=== PATIENT | male | born 1965 | race Caucasian/White ===

== ENCOUNTER 2016-09-25 18:22 | Emergency (ER) | payer MEDICARE, OTHER ==
[2016-09-25] VITALS (7 sets, daily range): BP systolic 136–209; BP diastolic 78–122; PULSE 69–85; RESP 18–20; TEMP 98.3–98.9; O2SAT 94–96
[~2016-09-25] VITALS: Ht 182.9 cm; Wt 147.0 kg
[~2016-09-25 18:22] MED LIST: CLON1TAB PO; IBUP800T23 PO; PAXI10TA2 PO; ROLLER WALKER1 MI1
[2016-09-25] MEDS ORDERED: ONDANSETRON HCL 4 MG/2 ML VIAL IV ONE (19:15)
[2016-09-25 19:36] LABS: AUTOMATED NEUTROPHIL # 7.1 TH/MM3 (1.8-7.7); BASOPHIL # 0.1 TH/MM3 (0-0.2); BASOPHIL % 0.9 % (0.0-2.0); EOSINOPHIL % 0.2 % (0.0-4.0); HEMATOCRIT 50.9 % (39.0-51.0); HEMO FLAGS DIFF FINAL; LYMPH % 20.4 % (9.0-44.0); MEAN CELL VOLUME 93.5 FL (80.0-100.0); MEAN CORPUSCULAR HEMOGLOBIN 31.7 PG (27.0-34.0); MEAN CORPUSCULAR HGB CONC 33.9 % (32.0-36.0); MONO % 6.2 % (0.0-8.0); NEUT % 72.3 % (16.0-70.0); PLATELET COUNT 150 TH/MM3 (150-450); RED BLOOD COUNT 5.45 MIL/MM3 (4.50-5.90); RED CELL DISTRIBUTION WIDTH 12.4 % (11.6-17.2); WHITE BLOOD COUNT 9.8 TH/MM3 (4.0-11.0)
--- NOTE | 2016-09-25 19:37 | PD ---
HPI . Headache, eye pain and dizziness Chief Complaint: General Weakness Time Seen by Provider: 18:53 Travel History International Travel<30 days: No Contact w/Intl Traveler<30days: No Traveled to known affect area: No History of Present Illness HPI This patient presents with multiple complaints. States he became ill yesterday. He states that his eyes hurt, his head hurts and feels dizzy. He has nausea and vomiting, abdominal pain and poor appetite. Mild cough. He reports pruritus of the anterior neck and arms and states that he has been scratching and that now he has red spots. His medical history is significant for hepatitis C and thrombocytopenia. PFSH Past Medical History Blood Disorders: No Bipolar Disorder: Yes Anxiety: Yes Depression: Yes Heart Rhythm Problems: No Cancer: No Cardiovascular Problems: No High Cholesterol: No Chemotherapy: No Chest Pain: No Congestive Heart Failure: No Diabetes: No Diminished Hearing: No Endocrine: No Gastrointestinal Disorders: No Genitourinary: No Headaches: Yes Hepatitis: Yes (HEP C) Hypertension: No Immune Disorder: No Musculoskeletal: No Neurologic: No Psychiatric: No Reproductive: No Respiratory: No Myocardial Infarction: No Schizophrenia: Yes Thyroid Disease: No PNEUMOCCOCAL Vaccine (Year): 1 Past Surgical History Abdominal Surgery: No AICD: No Arteriovenous Shunt: No Cardiac Surgery: No Ear Surgery: No Endocrine Surgery: No Eye Surgery: No Genitourinary Surgery: No Gynecologic Surgery: No Insulin Pump: No Joint Replacement: No Neurologic Surgery: No Oral Surgery: No Pacemaker: No Thoracic Surgery: No Other Surgery: No (KNEE SURGERY) Social History Alcohol Use: No Tobacco Use: No Substance Use: No Allergies-Medications (Allergen,Severity, Reaction): Coded Allergies: No Known Allergies (Verified , 07/26/16) Reported Meds & Prescriptions Reported Meds & Active Scripts Active Reported Clonazepam 1 Mg Tab 1 Mg PO TID Review of Systems Except as stated in HPI: all other systems reviewed are Neg General / Constitutional: Positive: Other (diaphoresis) Eyes: Positive: Pain HENT: Positive: Headaches Respiratory: Positive: Shortness of Breath Gastrointestinal: Positive: Nausea, Vomiting, Abdominal Pain, Loss of Appetite , No: Diarrhea Genitourinary: Positive: Decreased Urinary Output Skin: Positive Rash, Positive Itching, Positive Change in Pigmentation Neurologic: Positive: Dizziness Physical Exam Narrative GENERAL: Obese man who has good color but who is clammy. SKIN: Warm and clammy. He has patches and streaks of small purpuric lesions on his anterior neck and arms. HEAD: Atraumatic. Normocephalic. EYES: Pupils equal and round. ENT: No nasal bleeding or discharge. Mucous membranes pink and moist. NECK: Trachea midline. Neck supple. No lymphadenopathy. CARDIOVASCULAR: Regular rate and rhythm. Heart sounds normal. RESPIRATORY: No accessory muscle use. Lungs are clear with full air movement throughout. GASTROINTESTINAL: Abdomen soft,. Diffusely tender. No guarding or rebound. Nondistended. MUSCULOSKELETAL: No obvious deformities. No edema. NEUROLOGICAL: Awake and alert. No obvious cranial nerve deficits. Motor grossly within normal limits. Normal speech. PSYCHIATRIC: Appropriate mood and affect; insight and judgment normal. Data Data Last Documented VS Vital Signs Date Time Temp Pulse Resp B/P Pulse Ox O2 Delivery O2 Flow Rate FiO2 09/25/16 22:10 98.3 69 18 161/81 94 Room Air Orders Complete Blood Count With Diff (09/25/16 19:10) Comprehensive Metabolic Panel (09/25/16 19:10) Lactic Acid Sepsis Protocol (09/25/16 19:10) Lipase (09/25/16 19:10) Troponin I (09/25/16 19:10) Urinalysis - C+S If Indicated (09/25/16 19:10) Blood Culture (09/25/16 19:10) Chest, Single Ap (09/25/16 19:10) Ecg Monitoring (09/25/16 19:10) Iv Access Insert/Monitor (09/25/16 19:10) Oximetry (09/25/16 19:10) Ondansetron Inj (Zofran Inj) (09/25/16 19:15) Electrocardiogram (09/25/16 18:51) Lorazepam Inj (Ativan Inj) (09/25/16 22:30) Sodium Chlor 0.9% 1000 Ml Inj (Ns 1000 M (09/25/16 22:30) Labs Laboratory Tests Test 09/25/16 09/25/16 09/25/16 09/25/16 19:20 19:32 20:08 21:20 White Blood Count 9.8 TH/MM3 Red Blood Count 5.45 MIL/MM3 Hemoglobin 17.3 GM/DL Hematocrit 50.9 % Mean Corpuscular Volume 93.5 FL Mean Corpuscular Hemoglobin 31.7 PG Mean Corpuscular Hemoglobin 33.9 % Concent Red Cell Distribution Width 12.4 % Platelet Count 150 TH/MM3 Mean Platelet Volume 9.7 FL Neutrophils (%) (Auto) 72.3 % Lymphocytes (%) (Auto) 20.4 % Monocytes (%) (Auto) 6.2 % Eosinophils (%) (Auto) 0.2 % Basophils (%) (Auto) 0.9 % Neutrophils # (Auto) 7.1 TH/MM3 Lymphocytes # (Auto) 2.0 TH/MM3 Monocytes # (Auto) 0.6 TH/MM3 Eosinophils # (Auto) 0.0 TH/MM3 Basophils # (Auto) 0.1 TH/MM3 CBC Comment DIFF FINAL Differential Comment Lactic Acid Level 2.4 mmol/L Urine Color CLAUDIA Urine Turbidity CLEAR Urine pH 5.5 Urine Specific [place] 1.025 Urine Protein NEG mg/dL Urine Glucose (UA) NEG mg/dL Urine Ketones NEG mg/dL Urine Occult Blood SMALL Urine Nitrite NEG Urine Bilirubin NEG Urine Leukocyte Esterase NEG Urine WBC 0-2 /hpf Urine Squamous Epithelial 0-2 /hpf Cells Urine Mucus MOD /lpf Microscopic Urinalysis Comment CULT NOT INDICATED Sodium Level 136 MEQ/L Potassium Level 4.8 MEQ/L Chloride Level 100 MEQ/L Carbon Dioxide Level 27.4 MEQ/L Anion Gap 9 MEQ/L Blood Urea Nitrogen 12 MG/DL Creatinine 1.00 MG/DL Estimat Glomerular Filtration 78 ML/MIN Rate Random Glucose 114 MG/DL Calcium Level 8.5 MG/DL Total Bilirubin 0.6 MG/DL Aspartate Amino Transf 24 U/L (AST/SGOT) Alanine Aminotransferase 38 U/L (ALT/SGPT) Alkaline Phosphatase 69 U/L Troponin I LESS THAN 0.02 NG/ML Total Protein 8.0 GM/DL Albumin 4.1 GM/DL Lipase 79 U/L Test 09/25/16 22:16 Lactic Acid Level 0.9 mmol/L [facility] Medical Decision Making Medical Screen Exam Complete: Yes Emergency Medical Condition: Yes Interpretation(s) EKG shows a sinus rhythm with an incomplete right bundle justice block Differential Diagnosis Differential diagnosis of weakness includes but is not limited to infection, CVA , electrolyte disturbance, renal failure, hypoglycemia, UTI, ACS Narrative Course This patient presents with multiple complaints. Laboratory and radiographic evaluation is pending. In the meantime, he will be treated with IV fluids, Zofran Compazine and Benadryl. Our chemistry analyzer has been down so labs have been delayed. CBC has a normal white count of 9.5. Platelet count is also normal at 150K. H&H is 17.3 and 50.9. UA is negative. For the most part, his chemistries are pending. I do have his lactic acid back and it is 2.4. The patient continues to complain that he just doesn't feel right. I will give him some Ativan and some fluids and see if that helps. 10:50 PM Chemistries are now back. He has a repeat lactic acid level of 0.9. Liver function studies are normal. Troponin is less than 0.02. Lipase is normal. 11:05 PM The patient reports that he is feeling much better and is interested in going home. I think that this may have all been anxiety related. Diagnosis Primary Impression: Headache Qualified Code: R51 - Acute nonintractable headache, unspecified headache type Additional Impression: Dizziness and giddiness Disposition: DISCHARGE HOME Condition: Stable Loretta Royal MD Sep 25, 2016 19:37
[2016-09-25 20:20] LABS: BLOOD, URINE SMALL (NEG); GLUCOSE,URINE NEG (NEG); KETONE, URINE NEG (NEG); NITRITE,URINE NEG (NEG); PH, URINE 5.5 (5.0-8.5)
--- NOTE | 2016-09-25 20:25 | RADHPO ---
EXAM DATE/TIME: 09/25/2016 19:53 [facility] COMPARISON: No previous studies available for comparison. INDICATIONS : Cough, lower chest pain MEDICAL HISTORY : Diabetes mellitus type II. SURGICAL HISTORY : None. ENCOUNTER: Initial ACUITY: 1 day PAIN SCORE: 6/10 LOCATION: Bilateral chest FINDINGS: A single view of the chest demonstrates the lungs to be symmetrically aerated without evidence of mas s, infiltrate or effusion. The cardiomediastinal contours are unremarkable. Osseous structures are intact. CONCLUSION: No evidence of acute cardiopulmonary disease. Simon Chapin MD on September 25, 2016 at 20:23 Board Certified Radiologist. This report was verified electronically.
[2016-09-25 20:29] LABS: URINE COLOR AMBER (YELLW/STRAW)
[2016-09-25 20:32] LABS: COMMENT (UR) CULT NOT INDICATED; CULTURE IF INDICATED CULT NOT INDICATED; MUCUS URINE MOD /lpf (OCC); SQUAMOUS EPITHELIAL CELL URINE 0-2 /hpf (0-5); WBC, URINE 0-2 /hpf (0-5)
[2016-09-25 21:41] LABS: LACTIC ACID GHOST NOT REPORTABLE
[2016-09-25 21:42] LABS: BLOOD UREA NITROGEN 12 MG/DL (7-18); GLOMERULAR FILTRATION RATE 78 ML/MIN (>89); POTASSIUM 4.8 MEQ/L (3.5-5.1); SODIUM (NA) 136 MEQ/L (136-145)
[2016-09-25 21:43] LABS: CHLORIDE 100 MEQ/L (98-107)
[2016-09-25] MEDS ORDERED: SODIUM CHLOR 0.9% 1000 ML INJ 1,000 ML IV ONE (22:30)
[2016-09-25] MEDS ORDERED: LORazepam 2 MG/ML VIAL IV PUSH ONE (22:30)
[2016-09-25 22:37] LABS: ALKALINE PHOSPHATASE 69 U/L (45-117); ALT (GPT) 38 U/L (12-78); ANION GAP 9 MEQ/L (5-15); AST (GOT) 24 U/L (15-37); BICARBONATE 27.4 MEQ/L (21.0-32.0); TOTAL BILIRUBIN ADULT 0.6 MG/DL (0.2-1.0)
--- NOTE | 2016-09-26 23:53 | EKG ---
Date Performed: 09/25/2016 Time Performed: 18:51:54 PTAGE: 51 years EKG: Sinus arrhythmia Severe right axis deviation Incomplete RBBB Right ventricular hypertrophy Abnormal ECG PREVIOUS TRACING : 01/22/2007 07.35 DOCTOR: Christin Daniels Interpretating Date/Time 09/26/2016 23:47:12
== END 2016-09-25 23:59 | disposition home or self-care (01) ==
LOC: PHED 18:22
DX: R51 Headache (principal); R42 Dizziness and giddiness; R05 Cough; R11.2 Nausea with vomiting, unspecified; R10.9 Unspecified abdominal pain; I49.8 Other specified cardiac arrhythmias
CPT/HCPCS: 71010; 80053; 81001; 83605; 83690; 84484; 85025; 87040; 93005; 96361; 96374; 96375; 99284; J2060; J2405; J7030

== ENCOUNTER 2017-09-19 10:45 | Emergency (ER) | payer MEDICARE, OTHER ==
[~2017-09-19] VITALS: Ht 185.4 cm; Wt 131.0 kg
[~2017-09-19 10:45] MED LIST changes: -IBUP800T23 PO; -PAXI10TA2 PO; -ROLLER WALKER1 MI1
[2017-09-19 10:54] VITALS: BP 150/93; PULSE 76; RESP 16; TEMP 98.1; O2SAT 97
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
[2017-09-19] MEDS ORDERED: IBUPROFEN 800 MG TAB PO ONE (13:15)
[2017-09-19] MEDS ORDERED: TETANUS/DIPHTHERIA TOXOID ADULT 0.5 ML VIAL IM ONE (13:15)
[2017-09-19] MEDS ORDERED: ceFAZolin INJ 1,000 MG VIAL IM ONE (13:15)
[2017-09-19] MEDS ORDERED: CEPH-460 PO (13:23)
[2017-09-19] MEDS ORDERED: TRAM50 PO (13:24)
[2017-09-19 13:59] VITALS: BP 148/90
[2017-09-27] MEDS ORDERED: HYDR-3288 PO (08:19)
[2017-09-27] MEDS ORDERED: IBUP1TAB7 PO (08:19)
[2017-09-27] MEDS ORDERED: CEPH-460 PO (08:19)
== END 2017-09-19 14:04 | disposition home or self-care (01) ==
LOC: PHEFT 10:45
DX: S62.617A Displaced fracture of proximal phalanx of left little finger, initial encounter for closed fracture (principal); S61.215A Laceration without foreign body of left ring finger without damage to nail, initial encounter; F31.9 Bipolar disorder, unspecified; F41.9 Anxiety disorder, unspecified; F20.9 Schizophrenia, unspecified; V18.4XXA Pedal cycle driver injured in noncollision transport accident in traffic accident, initial encounter; Z86.19 Personal history of other infectious and parasitic diseases; Z23 Encounter for immunization; Z79.899 Other long term (current) drug therapy
CPT/HCPCS: 29125; 73130; 90471; 90714; 96372; 99284; J0690

== ENCOUNTER → 2017-09-27 | Day surgery (SDC) | payer MEDICARE, OTHER ==
[~2017-09-27] VITALS: Ht 182.9 cm; Wt 131.0 kg
[~2017-09-27] MED LIST changes: +BUPIVACAINE HCL PF 0.5% 30 ML VIAL ONE; +CEPH-460 PO; +CHLORHEXIDINE GLUCONATE 2 % 1 PACK (2 CLOTHS) TOPICAL PRN; +HYDR-3288 PO; +IBUP1TAB7 PO; +LACTATED RINGER'S 1000 ML IV PRN; +LIDOCAINE HCL 2% 50 ML VIAL ONE; +METOPROLOL TARTRATE 25 MG TAB PO PRN; +MIDAZOLAM HCL 2 MG/2 ML VIAL ONE; +MORPHINE SULFATE 4 MG/ML INJ ONE; +NEOMYCIN/POLYMYXIN 1 ML G.U. IRRIGANT ONE; +POVIDONE IODINE 5% (ANTISEPSIS KIT) 4 APPLICATIONS EACH NARE PRN; +SODIUM CHLORID 0.9% 500 ML IV PRN; +SODIUM CHLORIDE FLUSH BID IV FLUSH SCH; +SODIUM CHLORIDE FLUSH PRN IV FLUSH; +TRAM50 PO; +ceFAZolin 2 GM PREMIX 50 ML IV SCH
[2017-09-27 06:45] LABS: HEMOGLOBIN 15.4 GM/DL (13.0-17.0); MEAN CELL VOLUME 93.5 FL (80.0-100.0); MEAN CORPUSCULAR HEMOGLOBIN 32.1 PG (27.0-34.0); MEAN CORPUSCULAR HGB CONC 34.3 % (32.0-36.0); MEAN PLATELET VOLUME 9.1 FL (7.0-11.0); PLATELET COUNT 193 TH/MM3 (150-450); RED BLOOD COUNT 4.81 MIL/MM3 (4.50-5.90); RED CELL DISTRIBUTION WIDTH 12.3 % (11.6-17.2)
[2017-09-27 08:55] VITALS: PULSE 67
--- NOTE | 2017-09-27 09:23 | MP ---
cc: RICH ARGUETA III, M.D. DATE OF SURGERY: 09/27/2017 PREOPERATIVE DIAGNOSIS Left fifth proximal phalanx fracture. PROCEDURE 1. Left fifth proximal phalanx closed reduction and pinning with manipulation. 2. Use of image intensifier. SURGEON Rich Argueta III, MD PROCEDURE The patient was brought to the operating room and placed supine on the operating table. After the correct site and side of surgery were verified by members of each team in the room multiple times including the patient, myself and after adequate preoperative markings and preoperative written consent and general anesthesia had been achieved, the left upper extremity was prepped and draped in traditional sterile surgical fashion. Mini C-arm was used throughout the case verifying the site of the intended procedure and the fracture of the fifth proximal phalanx. A 50/50 mixture of 2% lidocaine and 0.5% plain Marcaine was infiltrated in the dorsal aspect of the hand and the MP joint to provide for postoperative pain control. Closed reduction was performed manually under fluoroscopic guidance and two separate K-wires were placed in antegrade fashion. The first is 0.035 cm K-wire and then a 0.045 cm K-wire and they are tailored to length, cut, bent and Odilon balls were applied. There is no evidence of any mal-angulation or malrotation. Tenodesis prior to the procedure revealed the flexor and extensor tendons were all intact. The hand and arm were thoroughly cleansed and dried. Additional local anesthetic was injected around the pin sites for postoperative pain control. Xeroform was applied around the pin sites and a well-padded, well-molded short-arm immobilizing splint was made in the usual fashion. The patient was awakened from anesthesia and transported to the Post Anesthesia Care Unit awake and in stable condition at the end of the case. Sponge, needle, instrument counts were correct at the end of the case as reported by nurses in the room. Capillary refill is less than 2 seconds in all fingertips. MD DONNIE Artis III/JAY /8:49 AM 8:55 AM
[2017-09-27 09:50] VITALS: BP 117/70; PULSE 62; RESP 16; TEMP 97.6; O2SAT 97
--- NOTE | 2017-09-28 19:17 | EKG ---
Date Performed: 09/27/2017 Time Performed: 07:07:05 PTAGE: 52 years EKG: Sinus rhythm WITH SINUS ARRHYTHMIA INDETERMINATE AXIS S1-S2-S3 PATTERN, CONSISTENT WITH PULMONARY DISEASE, RVH, O R NORMAL VARIANT INCOMPLETE RIGHT BUNDLE BRANCH BLOCK ABNORMAL ECG PREVIOUS TRACING : 09/25/2016 18.51 DOCTOR: Christin Daniels Interpretating Date/Time 09/28/2017 19:16:03
== END | disposition home or self-care (01) ==
LOC: PHSDC 06:03
PROVIDERS: ATTEND Orthopaedic Surgery Hand Surgery
DX: S62.617A Displaced fracture of proximal phalanx of left little finger, initial encounter for closed fracture (principal); R94.31 Abnormal electrocardiogram [ECG] [EKG]
CPT/HCPCS: 01820; 26727; 36415; 76000; 85027; 93005; J0690; J2250; J2270; J7120

== ENCOUNTER 2017-12-19 10:10 | Inpatient (IN) | payer MEDICARE, OTHER ==
[~2017-12-19] VITALS: Ht 182.9 cm; Wt 124.0 kg
[~2017-12-19 10:10] MED LIST changes: -BUPIVACAINE HCL PF 0.5% 30 ML VIAL ONE; -CEPH-460 PO; -CHLORHEXIDINE GLUCONATE 2 % 1 PACK (2 CLOTHS) TOPICAL PRN; +CIPR-9 PO; -HYDR-3288 PO; -IBUP1TAB7 PO; -LACTATED RINGER'S 1000 ML IV PRN; -LIDOCAINE HCL 2% 50 ML VIAL ONE; -METOPROLOL TARTRATE 25 MG TAB PO PRN; -MIDAZOLAM HCL 2 MG/2 ML VIAL ONE; -MORPHINE SULFATE 4 MG/ML INJ ONE; -NEOMYCIN/POLYMYXIN 1 ML G.U. IRRIGANT ONE; -POVIDONE IODINE 5% (ANTISEPSIS KIT) 4 APPLICATIONS EACH NARE PRN; -SODIUM CHLORID 0.9% 500 ML IV PRN; -SODIUM CHLORIDE FLUSH BID IV FLUSH SCH; -SODIUM CHLORIDE FLUSH PRN IV FLUSH; -ceFAZolin 2 GM PREMIX 50 ML IV SCH
[2017-12-19 10:20] VITALS: BP 175/108; PULSE 77; RESP 16; TEMP 98; O2SAT 96
--- NOTE | 2017-12-19 10:51 | PD ---
HPI Chief Complaint: Psychiatric Symptoms Time Seen by Provider: 10:32 Travel History International Travel<30 days: No Contact w/Intl Traveler<30days: No Traveled to known affect area: No History of Present Illness HPI 52-year-old male presents to the emergency department voluntarily for psychiatric evaluation. He has history of depression and says that he has been feeling suicidal. He has been off his medications for the past 3 weeks. He says he "just wants to give up." His plan is to kill himself by stopped taking his medications. He has history of suicidal attempt by jumping off a ting. Denies homicidal ideations. Says he has been isolating himself a lot lately. Says he feels very anxious. Patient is tremorous in bilateral lower extremities and says this is increased more than normal. Reports auditory hallucinations and voices tell him to hurt himself. Denies visual hallucinations. Admits to using illicit drugs and admits to crack cocaine and heroin. Injected heroin on Sunday. Denies chest pain, shortness of breath, abdominal pain. Reports feeling nauseated without vomiting. Says he has been having left flank pain on and off "for a while." He cannot verify how long and says that he has followed up with his PCP in regards to this complaint and was supposed to do some outpatient testing and has not followed up. Denies abdominal or flank pain at this time. Reports not having a bowel movement for almost a week. Denies dysuria. Says his feelings are aggravated by his depression. No known relieving factors. Symptoms are moderate to severe in severity. History of depression and bipolar disorder. His psychiatrist is Dr. Peters. Primary care providers Dr. Gibbons. No known allergies. History of hypertension and hepatitis C. Has not been taking his hypertension medications. Has no other medical complaints. No other modifying factors or associated signs and symptoms. PFSH Past Medical History Blood Disorders: No Bipolar Disorder: Yes Anxiety: Yes Depression: Yes Heart Rhythm Problems: No Cancer: No Cardiovascular Problems: No High Cholesterol: No Chemotherapy: No Chest Pain: No Congestive Heart Failure: No Diabetes: No Diminished Hearing: No Endocrine: No Gastrointestinal Disorders: No Genitourinary: No Headaches: Yes Hepatitis: Yes (HEP C) Hiatal Hernia: No Hypertension: No Immune Disorder: No Musculoskeletal: No Neurologic: No Psychiatric: No Reproductive: No Respiratory: No Myocardial Infarction: No Schizophrenia: Yes Thyroid Disease: No Tetanus Vaccination: < 5 Years PNEUMOCCOCAL Vaccine (Year): 1 Past Surgical History Abdominal Surgery: No AICD: No Arteriovenous Shunt: No Cardiac Surgery: No Ear Surgery: No Endocrine Surgery: No Eye Surgery: No Genitourinary Surgery: No Gynecologic Surgery: No Insulin Pump: No Joint Replacement: No Neurologic Surgery: No Oral Surgery: No Pacemaker: No Thoracic Surgery: No Social History Alcohol Use: No Tobacco Use: No Substance Use: Yes (crack, heroin) Allergies-Medications (Allergen,Severity, Reaction): Coded Allergies: No Known Allergies (Verified Adverse Reaction, Unknown, 12/19/17) Reported Meds & Prescriptions Reported Meds & Active Scripts Active Cipro (Ciprofloxacin HCl) 500 Mg Tab 500 Mg PO BID Ultram (Tramadol HCl) 50 Mg Tab 50 Mg PO Q6H PRN Reported Clonazepam 1 Mg Tab 1 Mg PO DIRECTED Review of Systems Except as stated in HPI: all other systems reviewed are Neg Physical Exam Narrative GENERAL: Well-nourished, well-developed male patient, in no acute distress SKIN: Warm and dry. HEAD: Atraumatic. Normocephalic. EYES: Pupils equal and round. ENT: Mucosa pink and moist. NECK: Supple. Trachea midline. CARDIOVASCULAR: Regular rate and rhythm. No murmur appreciated. RESPIRATORY: No accessory muscle use. Clear to auscultation. Breath sounds equal bilaterally. GASTROINTESTINAL: Abdomen soft, non-tender, nondistended. Hepatic and splenic margins not palpable. Bowel sounds are active 4 quadrants. MUSCULOSKELETAL: No obvious deformities. No clubbing. No cyanosis. No edema. BACK: No CVA tenderness. NEUROLOGICAL: Awake and alert. Oriented 3. No obvious cranial nerve deficits. Motor grossly within normal limits. Normal speech. Moves all extremities. 5/5 strength to all extremities. PSYCHIATRIC: No delusional thought processes. No hallucinations. Data Data Last Documented VS Vital Signs Date Time Temp Pulse Resp B/P (MAP) Pulse Ox O2 Delivery O2 Flow Rate FiO2 12/19/17 10:20 98.0 77 16 175/108 (130) 96 Orders Orders Complete Blood Count With Diff (12/19/17 10:34) Comprehensive Metabolic Panel (12/19/17 10:34) Thyroid Stimulating Hormone (12/19/17 10:34) Psych Screen (12/19/17 10:34) Drug Screen, Random Urine (12/19/17 10:34) Alcohol (Ethanol) (12/19/17 10:34) Salicylates (Aspirin) (12/19/17 10:34) Tylenol (Acetaminophen) (12/19/17 10:34) Lipase (12/19/17 10:51) Lorazepam (Ativan) (12/19/17 11:30) Docusate Sodium (Colace) (12/19/17 11:30) Labs Laboratory Tests Test 12/19/17 10:45 12/19/17 10:50 White Blood Count 6.8 TH/MM3 Red Blood Count 5.15 MIL/MM3 Hemoglobin 16.6 GM/DL Hematocrit 47.3 % Mean Corpuscular Volume 91.9 FL Mean Corpuscular Hemoglobin 32.2 PG Mean Corpuscular Hemoglobin Concent 35.0 % Red Cell Distribution Width 12.4 % Platelet Count 167 TH/MM3 Mean Platelet Volume 9.3 FL Neutrophils (%) (Auto) 68.4 % Lymphocytes (%) (Auto) 22.2 % Monocytes (%) (Auto) 8.7 % Eosinophils (%) (Auto) 0.4 % Basophils (%) (Auto) 0.3 % Neutrophils # (Auto) 4.6 TH/MM3 Lymphocytes # (Auto) 1.5 TH/MM3 Monocytes # (Auto) 0.6 TH/MM3 Eosinophils # (Auto) 0.0 TH/MM3 Basophils # (Auto) 0.0 TH/MM3 CBC Comment DIFF FINAL Differential Comment Blood Urea Nitrogen 7 MG/DL Creatinine 1.16 MG/DL Random Glucose 82 MG/DL Total Protein 8.0 GM/DL Albumin 4.0 GM/DL Calcium Level 8.8 MG/DL Alkaline Phosphatase 71 U/L Aspartate Amino Transf (AST/SGOT) 20 U/L Alanine Aminotransferase (ALT/SGPT) 18 U/L Total Bilirubin 0.4 MG/DL Sodium Level 139 MEQ/L Potassium Level 3.5 MEQ/L Chloride Level 108 MEQ/L Carbon Dioxide Level 21.4 MEQ/L Anion Gap 10 MEQ/L Estimat Glomerular Filtration Rate 66 ML/MIN Lipase 128 U/L Thyroid Stimulating Hormone 3rd Gen 0.981 uIU/ML Salicylates Level LESS THAN 1.7 MG/DL Ethyl Alcohol Level LESS THAN 3 MG/DL Urine Opiates Screen NEG Urine Barbiturates Screen NEG Urine Amphetamines Screen NEG Urine Benzodiazepines Screen POS Urine Cocaine Screen POS Urine Cannabinoids Screen NEG MDM Medical Decision Making Medical Screen Exam Complete: Yes Emergency Medical Condition: Yes Medical Record Reviewed: Yes Differential Diagnosis Polysubstance abuse, depression, suicidal ideation, medical clearance for psychiatric admission Narrative Course Patient presents voluntarily. Physical examination and vital signs are essentially unremarkable. Patient has no medical complaints to report. Psych screen has been ordered. If the laboratory results are unremarkable, the patient will be medically cleared for psychiatric evaluation and disposition. Ativan and Colace ordered. Diagnosis Primary Impression: Medical clearance for psychiatric admission Condition: Stable Kay Estrella Dec 19, 2017 10:51
[2017-12-19 11:09] LABS: AUTOMATED NEUTROPHIL # 4.6 TH/MM3 (1.8-7.7); BASOPHIL % 0.3 % (0.0-2.0); EOSINOPHIL % 0.4 % (0.0-4.0); HEMATOCRIT 47.3 % (39.0-51.0); HEMOGLOBIN 16.6 GM/DL (13.0-17.0); LYMPH % 22.2 % (9.0-44.0); LYMPHOCYTE # 1.5 TH/MM3 (1.0-4.8); MEAN CELL VOLUME 91.9 FL (80.0-100.0); MEAN CORPUSCULAR HEMOGLOBIN 32.2 PG (27.0-34.0); MEAN PLATELET VOLUME 9.3 FL (7.0-11.0); MONO % 8.7 % (0.0-8.0); MONOCYTE # 0.6 TH/MM3 (0-0.9); NEUT % 68.4 % (16.0-70.0); PLATELET COUNT 167 TH/MM3 (150-450); RED BLOOD COUNT 5.15 MIL/MM3 (4.50-5.90); RED CELL DISTRIBUTION WIDTH 12.4 % (11.6-17.2); WHITE BLOOD COUNT 6.8 TH/MM3 (4.0-11.0)
[2017-12-19 11:23] LABS: BICARBONATE 21.4 MEQ/L (21.0-32.0); BLOOD UREA NITROGEN 7 MG/DL (7-18); CALCIUM 8.8 MG/DL (8.5-10.1); CHLORIDE 108 MEQ/L (98-107); CREATININE 1.16 MG/DL (0.60-1.30); GLOMERULAR FILTRATION RATE 66 ML/MIN (>89); GLUCOSE,RANDOM 82 MG/DL (74-106); SODIUM (NA) 139 MEQ/L (136-145)
[2017-12-19 11:24] LABS: ALT (GPT) 18 U/L (12-78)
[2017-12-19] MEDS ORDERED: DOCUSATE SODIUM 100 MG CAP PO ONE (11:30)
[2017-12-19] MEDS ORDERED: LORazepam 2 MG TAB PO ONE (11:30)
[2017-12-19 11:34] LABS: ALKALINE PHOSPHATASE 71 U/L (45-117); AST (GOT) 20 U/L (15-37); TOTAL BILIRUBIN ADULT 0.4 MG/DL (0.2-1.0)
[2017-12-19 11:41] LABS: ACETAMINOPHEN LESS THAN 2.0 MCG/ML (10.0-30.0)
[2017-12-19 12:18] VITALS: BP 172/96; PULSE 67; RESP 18; O2SAT 98
[2017-12-19 18:39] VITALS: BP 145/91; PULSE 75; RESP 18; O2SAT 99
[2017-12-19] MEDS ORDERED: ACETAMINOPHEN 325 MG TAB PO PRN (21:30)
[2017-12-19] MEDS ORDERED: LORazepam 2 MG/ML VIAL IM PRN ×2 (21:30)
[2017-12-19] MEDS ORDERED: traMADol HCL 50 MG TAB PO PRN (21:30)
[2017-12-19] MEDS ORDERED: MAGNESIUM HYDROXIDE SUSP 30 ML CUP PO PRN (21:30)
[2017-12-19] MEDS ORDERED: LORazepam 0.5 MG TAB PO PRN (21:30)
[2017-12-19] MEDS ORDERED: ALUMINUM/MAGNESIUM/SIMETH 30 ML CUP PO PRN (21:30)
[2017-12-19] MEDS: LORazepam 1 MG TAB PO PRN (23:11)
[2017-12-19 23:40] VITALS: BP 153/96; PULSE 77; RESP 18; TEMP 98.1; O2SAT 97
[2017-12-20 05:55] VITALS: BP 142/86; PULSE 67; RESP 16; TEMP 98.2; O2SAT 97
[2017-12-20 07:40] LABS: BICARBONATE 22.9 MEQ/L (21.0-32.0); BLOOD UREA NITROGEN 9 MG/DL (7-18); CALCIUM 8.7 MG/DL (8.5-10.1); CHLORIDE 106 MEQ/L (98-107); CREATININE 1.14 MG/DL (0.60-1.30); GLOMERULAR FILTRATION RATE 67 ML/MIN (>89); GLUCOSE,RANDOM 108 MG/DL (74-106); SODIUM (NA) 138 MEQ/L (136-145)
[2017-12-20 07:42] LABS: CHOLESTEROL 158 MG/DL (120-200)
[2017-12-20 07:44] LABS: CHOLESTEROL/ HDL RATIO 4.22 RATIO; HDL CHOLESTEROL 37.4 MG/DL (40.0-60.0); LDL CHOLESTEROL 100 MG/DL (0-99); TRIGLYCERIDES 101 MG/DL (42-150)
[2017-12-20] MEDS: NICOTINE 21 MG/24 HR PATCH T-DERMAL SCH (09:00)
[2017-12-20] MEDS: REMOVE OLD NICODERM (NICOTINE) PATCH T-DERMAL SCH (09:00)
[2017-12-20] MEDS: LORazepam 1 MG TAB PO PRN (09:07)
[2017-12-20] MEDS ORDERED: PARO40TA2 PO (09:45)
[2017-12-20] MEDS ORDERED: ZIPR20 PO (09:45)
[2017-12-20] MEDS ORDERED: SPIR25TA PO (09:45)
[2017-12-20] MEDS ORDERED: ALPR2TAB3 PO (09:45)
[2017-12-20] MEDS ORDERED: LORazepam 2 MG/ML VIAL IV PUSH PRN ×4 (13:00)
[2017-12-20] MEDS ORDERED: FLUMAZENIL 0.5 MG/5 ML VIAL IV PUSH PRN (13:00)
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
[2017-12-20] MEDS ORDERED: PILL SPLITTER OTHER PRN (13:30)
[2017-12-20] MEDS: SERTRALINE HCL 50 MG TAB PO SCH (13:51)
[2017-12-20] MEDS: LITHIUM CARBONATE 300 MG TAB PO SCH (13:51)
[2017-12-20] MEDS: LORazepam 2 MG TAB PO PRN ×2 (13:51→21:11)
[2017-12-20 15:32] LABS: HEMOGLOBIN A1C 5.2 % (4.3-6.0)
[2017-12-20 16:33] VITALS: BP 153/83; PULSE 71; RESP 17; TEMP 98.2; O2SAT 96
[2017-12-20] MEDS: ZIPRASIDONE HCL 20 MG CAP PO SCH (21:10)
[2017-12-21 05:50] VITALS: BP 141/75; PULSE 56; RESP 16; TEMP 97.5; O2SAT 97
[2017-12-21] MEDS: SPIRONOLACTONE 25 MG TAB PO SCH (08:21)
[2017-12-21] MEDS: SERTRALINE HCL 50 MG TAB PO SCH (08:22)
[2017-12-21] MEDS: LITHIUM CARBONATE 300 MG TAB PO SCH (08:22)
[2017-12-21] MEDS: ZIPRASIDONE HCL 20 MG CAP PO SCH ×2 (08:22→20:27)
[2017-12-21] MEDS: REMOVE OLD NICODERM (NICOTINE) PATCH T-DERMAL SCH (09:00)
[2017-12-21] MEDS: NICOTINE 21 MG/24 HR PATCH T-DERMAL SCH (09:00)
--- NOTE | 2017-12-21 09:09 | PD.CONS ---
HPI Service [facility] Hospitalists Consult Requested By Psychiatric team Reason for Consult Medical management Primary Care Physician Ez Gibbons MD Diagnoses: History of Present Illness This is a 52-year-old male patient with a past medical history which includes hypertension, anxiety, polysubstance abuse and bipolar disorder. Patient is currently admitted to inpatient psychiatric center with been consulted for assistance with medical management. Patient offers no medical complaints at this time. Reports he presented to the psychiatric department for suicidal thoughts but continues to deny other medical concerns. Patient denies chest pain fevers chills nausea vomiting shortness of breath cough congestion nausea vomiting diarrhea constipation. Review of Systems Constitutional: DENIES: Fatigue, Fever, Chills, Dizziness Eyes: DENIES: Blurred vision, Diplopia, Photosensitivity Respiratory: DENIES: Sputum production, Shortness of breath Cardiovascular: DENIES: Chest pain, Palpitations, Dyspnea on Exertion, Lower Extremity Edema Gastrointestinal: DENIES: Abdominal pain, Constipation, Diarrhea, Nausea, Vomiting Genitourinary: DENIES: Urinary frequency, Dysuria Neurologic: DENIES: Abnormal gait, Headache, Localized weakness, Speech Problems Psychiatric: COMPLAINS OF: Hallucinations (auditory hallucinations), Suicidal Ideation, DENIES: Confusion Past Family Social History Past Medical History hypertension, anxiety, polysubstance abuse and bipolar disorder Past Surgical History Colonoscopy, EGD, knee surgery Reported Medications Ultram (Tramadol HCl) 50 Mg Tab 50 Mg PO Q6H PRN Geodon (Ziprasidone) 20 Mg Cap 20 Mg PO BID Paroxetine (Paroxetine HCl) 40 Mg Tab 50 Mg PO DAILY Alprazolam 2 Mg Tab 2 Mg PO Q6H PRN Spironolactone 25 Mg Tab 12.5 Mg PO DAILY Clonazepam 1 Mg Tab 1 Mg PO DIRECTED Amlodipine 2.5 mg by mouth daily Allergies: Coded Allergies: No Known Allergies (Verified Adverse Reaction, Unknown, 12/19/17) Family History Reviewed positive for polysubstance abuse/addiction's Social History Patient is on disability he is but currently living separately from his Positive EtOH use Positive tobacco use Positive illicit drug use including marijuana cocaine and heroin Physical Exam Vital Signs Vital Signs Date Time Temp Pulse Resp B/P (MAP) Pulse Ox O2 Delivery O2 Flow Rate FiO2 12/21/17 05:50 97.5 56 16 141/75 (97) 97 12/20/17 16:33 98.2 71 17 153/83 (446) 02 Physical Exam GENERAL: This is a well-nourished, well-developed patient, in no apparent distress. SKIN: No rashes, ecchymoses or lesions. Cool and dry. HEAD: Atraumatic. Normocephalic. No temporal or scalp tenderness. EYES: Extraocular motions intact. No scleral icterus. No injection or drainage. CARDIOVASCULAR: Regular rate and rhythm RESPIRATORY: Clear to auscultation. Breath sounds equal bilaterally. GASTROINTESTINAL: Abdomen soft, non-tender, nondistended. MUSCULOSKELETAL: Extremities without clubbing, cyanosis, or edema. No joint tenderness, effusion, or edema noted. No calf tenderness. Negative Homans sign bilaterally. NEUROLOGICAL: Awake and alert. Motor and sensory grossly within normal limits. Five out of 5 muscle strength in all muscle groups. Result Diagram: 12/19/17 1045 12/20/17 0630 Assessment and Plan Problem List: (1) Bipolar I disorder, most recent episode mixed, moderate ICD Codes: F31.62 - Bipolar disorder, current episode mixed, moderate Status: Chronic Plan: Patient currently inpatient psychiatric center management of bipolar and suicidal ideations per psychiatric team (2) Polysubstance abuse ICD Codes: F19.10 - Other psychoactive substance abuse, uncomplicated Plan: Patient counseled encouraged to abstain CIWA protocol (3) Hypertension ICD Codes: I10 - Essential (primary) hypertension Plan: Resume patient's home Amlodipine 2.5 mg by mouth daily added, may need to titrate up as needed for control of hypertension Clonidine 0.1 mg by mouth as needed for hypertension (4) Hypokalemia ICD Codes: E87.6 - Hypokalemia Plan: Potassium 3.4 replaced Assessment and Plan Patient examined. Assessment and plan formulated with Eri Addison PA-C. I agree with the above. Home blood pressure medication resumed. Pt appears medically stable. Treatment of bipolar disorder and polysubstance abuse per Psychiatry Eri Addison Dec 21, 2017 09:09 Brett Carrasquillo DO Dec 21, 2017 19:40
[2017-12-21] MEDS ORDERED: POTASSIUM CHLORIDE 20 MEQ CONTROLLED RELEASE TAB PO ONE (09:30)
[2017-12-21] MEDS: amLODIPine BESYLATE 5 MG TAB PO SCH (10:31)
[2017-12-21] MEDS: LORazepam 1 MG TAB PO PRN (10:31)
[2017-12-21 10:51] VITALS: BP 122/58; PULSE 64; RESP 17; TEMP 97.4; O2SAT 97
--- NOTE | 2017-12-21 13:30 | HHI.PYPN ---
Subjective Remarks Patient seen in his room with nurse [place] chart review, patient compliant medications, patient discussed with nurse., patient laying quietly in bed, is calm cooperative said he slept better last night. Denies suicidality at this time is vague about voices. He states he has talked with a safe sober house in the [place] area of the bed may be available on Sunday. We'll verify this. Otherwise continue treatment Review of Systems Except as stated in HPI: all other systems reviewed are Neg Mental Status Examination Appearance: Appropriate Consciousness: Alert Orientation: x4 Motor Activity: Normal gait Speech: Unremarkable Language: Adequate Fund of Knowledge: Adequate Attention and Concentration: Other (fair) Memory: Unremarkable Mood: Sad Affect: Other (decreased range and intensity) Thought Process & Associations: Intact Thought Content: Appropriate Hallucination Type: None (vague about voices) Delusion Type: None Suicidal Ideation: Yes (vague, denies at this time) Suicidal Plan: No Suicidal Intention: No Homicidal Ideation: No Homicidal Plan: No Homicidal Intention: No Insight: Fair Judgment: Impulsive Results Vitals/IOs Vital Signs Date Time Temp Pulse Resp B/P (MAP) Pulse Ox O2 Delivery O2 Flow Rate FiO2 12/21/17 10:51 97.4 64 17 122/58 (79) 97 12/19/17 18:39 Room Air Intake and Output 12/21/17 12/21/17 12/22/17 08:00 16:00 00:00 Intake Total 480 ml Balance 480 ml Assessment & Plan Problem List: (1) Polysubstance abuse ICD Codes: F19.10 - Other psychoactive substance abuse, uncomplicated (2) Bipolar I disorder, most recent episode mixed, moderate ICD Codes: F31.62 - Bipolar disorder, current episode mixed, moderate Status: Chronic Assessment & Plan Estimated LOS: days patient continues depressed though suicidality is resolving. The showing some initiative at exploring sober house placements Justification for Cont. Inpt. At this time patient will decompensate if placed a lower level of care Discharge Planning [place] placement and sober house first part of next week Request HC Surrog/Guard Advoc?: No Simon Johansen MD Dec 21, 2017 13:30
[2017-12-21 16:02] VITALS: BP 148/86; PULSE 78; RESP 18; TEMP 98.1; O2SAT 98
[2017-12-21] MEDS: hydrOXYzine HCL 50 MG TAB PO PRN (20:27)
[2017-12-22 05:45] VITALS: BP 134/80; PULSE 52; RESP 16; TEMP 98.1; O2SAT 98
[2017-12-22] MEDS: ZIPRASIDONE HCL 20 MG CAP PO SCH ×2 (08:44→20:39)
[2017-12-22] MEDS: SERTRALINE HCL 50 MG TAB PO SCH (08:45)
[2017-12-22] MEDS: amLODIPine BESYLATE 5 MG TAB PO SCH (08:45)
[2017-12-22] MEDS: LITHIUM CARBONATE 300 MG TAB PO SCH (08:45)
[2017-12-22] MEDS: SPIRONOLACTONE 25 MG TAB PO SCH (08:45)
[2017-12-22] MEDS: NICOTINE 21 MG/24 HR PATCH T-DERMAL SCH (08:53)
[2017-12-22] MEDS: REMOVE OLD NICODERM (NICOTINE) PATCH T-DERMAL SCH (08:54)
[2017-12-22] MEDS: LORazepam 1 MG TAB PO PRN ×3 (12:30→20:39)
--- NOTE | 2017-12-22 12:33 | HHI.PYPN ---
Subjective Remarks Patient was seen and case discussed with nursing. Patient is tremulous during the interview and myself and nursing have reservations if this is genuine or manipulative behavior. Patient says he was taking 8 mg of Xanax daily and using crack cocaine before admission. He is in the CIWA scale. Blood pressures have been stable, there is no confusion, is alert and oriented 4, no nausea or vomiting, no auditory visual hallucinations. Patient is behaving well on the unit. Denies suicidal or homicidal ideation intent or plan. Sleeping and eating well Mental Status Examination Appearance: Appropriate Consciousness: Alert Orientation: x4 Motor Activity: Normal gait Speech: Unremarkable Language: Adequate Fund of Knowledge: Adequate Attention and Concentration: Other (fair) Memory: Unremarkable Mood: Sad Affect: Other (decreased range and intensity) Thought Process & Associations: Intact Thought Content: Appropriate Hallucination Type: None (vague about voices) Delusion Type: None Suicidal Ideation: No Suicidal Plan: No Suicidal Intention: No Homicidal Ideation: No Homicidal Plan: No Homicidal Intention: No Insight: Fair Judgment: Impulsive Results Vitals/IOs Vital Signs Date Time Temp Pulse Resp B/P (MAP) Pulse Ox O2 Delivery O2 Flow Rate FiO2 12/22/17 05:45 98.1 52 16 134/80 (98) 98 12/19/17 18:39 Room Air Intake and Output 12/22/17 12/22/17 12/23/17 08:00 16:00 00:00 Intake Total 240 ml Balance 240 ml Assessment & Plan Problem List: (1) Polysubstance abuse ICD Codes: F19.10 - Other psychoactive substance abuse, uncomplicated (2) Bipolar I disorder, most recent episode mixed, moderate ICD Codes: F31.62 - Bipolar disorder, current episode mixed, moderate Status: Chronic Assessment & Plan Nursing asked to check on patient see if he continues to shake and if so to administer Ativan per CIWA Justification for Cont. Inpt. Patient would decompensate in a less restrictive setting Request HC Surrog/Guard Advoc?: No Julius Jesus DO Dec 22, 2017 12:33
[2017-12-22 17:27] VITALS: BP 146/86; PULSE 87; RESP 16; TEMP 98.3; O2SAT 98
[2017-12-22] MEDS: hydrOXYzine HCL 50 MG TAB PO PRN (20:39)
[2017-12-23 05:36] VITALS: BP 120/90; PULSE 74; RESP 16; TEMP 98.1; O2SAT 98
[2017-12-23] MEDS: SERTRALINE HCL 50 MG TAB PO SCH (08:35)
[2017-12-23] MEDS: LITHIUM CARBONATE 300 MG TAB PO SCH ×2 (08:35→21:09)
[2017-12-23] MEDS: LORazepam 1 MG TAB PO PRN ×2 (08:35→15:00)
[2017-12-23] MEDS: SPIRONOLACTONE 25 MG TAB PO SCH (08:35)
[2017-12-23] MEDS: amLODIPine BESYLATE 5 MG TAB PO SCH (08:35)
[2017-12-23] MEDS: ZIPRASIDONE HCL 20 MG CAP PO SCH ×2 (08:35→21:10)
[2017-12-23] MEDS: REMOVE OLD NICODERM (NICOTINE) PATCH T-DERMAL SCH (08:40)
[2017-12-23] MEDS: NICOTINE 21 MG/24 HR PATCH T-DERMAL SCH (08:40)
--- NOTE | 2017-12-23 11:57 | HHI.PYPN ---
Subjective Remarks Patient was seen and case discussed with nursing. Patient no longer has tremors. CIWA is 1 and he has received 1 mg of Ativan today. Mood is "better. " Denies suicidal or homicidal ideation intent or plan. Speaking with family on the phone. [place] level 0.2. Mental Status Examination Appearance: Appropriate Consciousness: Alert Orientation: x4 Motor Activity: Normal gait Speech: Unremarkable Language: Adequate Fund of Knowledge: Adequate Attention and Concentration: Other (fair) Memory: Unremarkable Mood: Sad Affect: Other (decreased range and intensity) Thought Process & Associations: Intact Thought Content: Appropriate Hallucination Type: None (vague about voices) Delusion Type: None Suicidal Ideation: No Suicidal Plan: No Suicidal Intention: No Homicidal Ideation: No Homicidal Plan: No Homicidal Intention: No Insight: Fair Judgment: Impulsive Results Labs Test 12/23/17 08:32 [place] Level 0.2 MEQ/L Vitals/IOs Vital Signs Date Time Temp Pulse Resp B/P (MAP) Pulse Ox O2 Delivery O2 Flow Rate FiO2 12/23/17 05:36 98.1 74 16 120/90 (100) 98 12/19/17 18:39 Room Air Assessment & Plan Problem List: (1) Polysubstance abuse ICD Codes: F19.10 - Other psychoactive substance abuse, uncomplicated (2) Bipolar I disorder, most recent episode mixed, moderate ICD Codes: F31.62 - Bipolar disorder, current episode mixed, moderate Status: Chronic Assessment & Plan Increase lithium to 300 mg by mouth twice a day Justification for Cont. Inpt. Patient will decompensate in a less restrictive setting Request HC Surrog/Guard Advoc?: No Julius Jesus DO Dec 23, 2017 11:57
[2017-12-23 18:35] VITALS: BP 157/92; PULSE 80; RESP 18; TEMP 97.5; O2SAT 98
[2017-12-23] MEDS: hydrOXYzine HCL 50 MG TAB PO PRN (22:05)
[2017-12-24 05:41] VITALS: BP 150/99; PULSE 64; RESP 16; TEMP 97.5; O2SAT 98
[2017-12-24] MEDS: SPIRONOLACTONE 25 MG TAB PO SCH (08:41)
[2017-12-24] MEDS: SERTRALINE HCL 50 MG TAB PO SCH (08:41)
[2017-12-24] MEDS: ZIPRASIDONE HCL 20 MG CAP PO SCH (08:41)
[2017-12-24] MEDS: amLODIPine BESYLATE 5 MG TAB PO SCH (08:41)
[2017-12-24] MEDS: LITHIUM CARBONATE 300 MG TAB PO SCH (08:42)
[2017-12-24] MEDS: NICOTINE 21 MG/24 HR PATCH T-DERMAL SCH (09:00)
[2017-12-24] MEDS: REMOVE OLD NICODERM (NICOTINE) PATCH T-DERMAL SCH (09:00)
[2017-12-24] MEDS ORDERED: ZIPR20 PO (10:32)
[2017-12-24] MEDS ORDERED: LITH300T3 PO (10:32)
[2017-12-24] MEDS ORDERED: TRAM50 PO (10:32)
[2017-12-24] MEDS ORDERED: AMLO5 PO (10:32)
[2017-12-24] MEDS ORDERED: SPIR25TA PO (10:32)
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
--- NOTE | 2017-12-24 10:49 | PD.TTN ---
Patient Problems 1. Discharge planning 2. Medication compliance 3. Knowledge deficit 4. Lack of coping skills Progress Toward Goals Provider Present: Dr. Mango Johansen Provider Input: Dr. Johansen's had his treatment team meeting to discuss patient's discharge, medication and treatment plan. Will continue treatment. Patient is being discharged to rehab. Sunday12/26/17. Nurse(s) Input: Patient's nurse reports patient is flat, isolates to room, depressed, denies suicidal and homicidal ideation. Patient is cooperative with his medication. Psychiatric Counselors Present: Laura Lawrence [facility] Psych Therapist Input: Patient is leaving today to [facility] in [place]. [employer] will provide transportation. Patient presented cooperative but restriced, anxious. Patient is taking his medication. Group Spec/RT/OT/MEZA Present: Sonny Jacobs OT Group Spec/RT/OT/MEZA Input: Patient does not attend groups. Laura Lawrence [facility] Dec 24, 2017 10:49
== END 2017-12-24 15:00 | DRG 885 ==
LOC: NEPD 10:10 → NEDA 21:25 → H260 23:39
PROVIDERS: ADMIT Psychiatry & Neurology Psychiatry; ATTEND Psychiatry & Neurology Psychiatry
DX: F31.62 Bipolar disorder, current episode mixed, moderate (principal); R45.851 Suicidal ideations; I10 Essential (primary) hypertension; E87.6 Hypokalemia; F11.10 Opioid abuse, uncomplicated; F14.10 Cocaine abuse, uncomplicated; F41.9 Anxiety disorder, unspecified; F10.10 Alcohol abuse, uncomplicated; F12.10 Cannabis abuse, uncomplicated; Y90.0 Blood alcohol level of less than 20 mg/100 ml; Z62.810 Personal history of physical and sexual abuse in childhood; Z72.0 Tobacco use
CPT/HCPCS: 80048; 80053; 80061; 80178; 80307; 83036; 83690; 84443; 85025